=== PATIENT | female | born 1995 | race Caucasian/White ===

== ENCOUNTER 2017-04-21 07:30 | Inpatient (IN) | payer SELFPAY ==
[2017-04-21 01:57] VITALS: BMI 31.4
[2017-04-21] MEDS: Lactated Ringers 1,000 ML 50 ML IV ×3 (07:40→12:56)
[2017-04-21 07:59] LABS: Hemoglobin 12.8 g/dl (12.0-15.0); Mean Corp Hgb Conc 33.7 g/gl (32-36); Mean Corpuscular Hgb 31.7 pg (27.0-32.0); Mean Corpuscular Volume 94.1 fL (81-99); Mean Platelet Vol. 9.9 fl (6.2-12.0); Platelet Count 246 K/mm3 (150-450); RBC Distribution Width CV 12.5 % (11.6-14.6); RBC Distribution Width SD 42.9 fl (35.1-43.9); Red Blood Count 4.04 M/mm3 (4.2-5.4); White Blood Count 14.6 K/mm3 (4.4-11.0)
[2017-04-21 08:00] LABS: Scan Indicated on CBC? Y/N NO
--- NOTE | 2017-04-21 08:57 | PCM.PN.BLA ---
Progress Note LABOR PROGRESS NOTE Contractions are more intense. She is inquiring about an epidural. The nitrous oxide is not helping. AVSS GEN - NAD FHR 130, moderate variability, no accelerations, + variable deceleration TOCO 3/10 min SVE deferred A/P: 21yo G1 @ 38 4/7wga in latent labor, Cat II FHR -FHR overall reassuring, previously Cat I with accelerations also present and variables shallow -Epidural per patient request -Repeat vaginal exam after epidural placed
[2017-04-21] MEDS: Amnioinfusion- 0.9% NS 1,000 ML IV.SOLN. 300 ML INTRA-UTER (12:42)
--- NOTE | 2017-04-21 12:46 | PCM.PN.BLA ---
Progress Note LABOR PROGRESS NOTE Comfortable with epidural. No complaints. AVSS GEN - NAD, AAO x 3 FHR 145, minimal variability, + variable decelerations, + accelerations with scalp stimulation TOCO 3/10 min SVE FD/0 station, cephalic A/P: 21yo G1 @ 38 4/7wga in labor, Cat II FHR -IUPC placed and amnioinfusion started for suspected cord compression -Will monitor strip for 10-15 minutes, if no improvement of variability with repositioning, will proceed with pushing -Overall reassuring maternal and status
[2017-04-21] MEDS: Oxytocin 30 units/NS 500 ml 30 UNITS/500 ML IV.SOLN 334 UNITS IV (14:05)
--- NOTE | 2017-04-21 14:26 | PCM.OB.VAG ---
(1) (spontaneous vaginal delivery) Status: Acute (2) 38 weeks gestation of Status: Acute Vaginal Delivery Maternal Presentation: - - Latent labor Amniotic Membrane Rupture Type: Spontaneous Rupture of Membrane time: 04/21/17 1005h Amniotic Fluid Description: Clear, - - Terminal meconium Final MARGIE: 05/08/17 Final MARGIE Source: US <20 weeks Gestational age: 37 Weeks and 4 Days Date of Procedure: 04/21/17 Pre-Operative Diagnosis: 38 4/7wga, labor Post-Operative Diagnosis: 38 4/7wga, labor Surgery/ Procedure Performed: Spontaneous Vaginal Delivery Anesthesiologist: Vinny Calixto Type of Anesthesia: Epidural Description of Procedure: Patient was FD/+3 station on my arrival and pushing to +4 with Cat II FHR with accelerations, moderate variability and variable decelerations. She pushed to deliver head in HENRIQUE. Nuchal cord was reduced x 1. The infant shoulders and body delivered with ease to reveal a vigorous male . The was placed on the maternal abdomen and further attended by nursery personnel. The cord was doubly clamped and cut. Cord gas specimen were obtained. The placenta delivered spontaneously and appeared intact on inspection. A small vaginal laceration was repaired with 3-0 Vicryl Rapide for hemostasis with hemostasis attained. The fundus was firm at the umbilicus. Presentation: Vertex, HENRIQUE Placental Delivery Description: Spontaneous Placenta Disposition: [facility] Cord Vessel Description: 3 Vessels Nuchal Cord Compression: Without compression Cord Gases drawn per routine: ABG, VBG Cord Entanglement: Around neck x 1, loose Drain: Russ to straight drain Estimated Blood Loss: 200 Infant A gender: Male (1 minute): 8 (5 minute): 9 Episiotomy Description: None Laceration: Midline, Vaginal Extension/lac Medications given after delivery: IV Pitocin Complications: None
[2017-04-21] MEDS: Oxytocin 30 units/NS 500 ml 30 UNITS/500 ML IV.SOLN 167 UNITS IV (14:35)
--- NOTE | 2017-04-21 17:11 | DCINST_ITS ---
Discharge Diet: No Restrictions Discharge Activity: Return to Normal Activity, May Shower, May Take a Tub Bath May resume sexual activity in: 6 weeks Lifting Restrictions: 10-20 lb Call your doctor if you observe: Fever of 101 or Higher, Inability to urinate, Inability to have a bowel movement, Using more than one pad per hour, Shortness of breath, Chest pain, Calf discomfort, Uncontrolled pain Additional Instructions: If you experience any of the following, contact your healthcare provider. * Bleeding that soaks a pad every hour for 2 hours * Fever 100.4 or higher * Unrelieved incision or abdominal pain * Swelling, redness, discharge or bleeding from your incision or episiotomy site * Your incision begins to separate * Problems urinating (including inability to urinate or burning while urinating) . * Visual changes * Severe headache * Flu-like symptoms * Pain or redness in one of both of your breasts * Pain, warmth, tenderness or swelling in your legs, especially the calf area * Frequent nausea and vomiting * Symptoms of depression or anxiety If you experience any of the following, call 911 or go to the nearest Emergency Room. * Chest pain * Problems breathing * Seizure activity * Partial or complete paralysis of a body part, slurred speech, weakness or drooping of the face, or a sudden inability to walk or hold your balance Allergies/Adverse Reactions: Allergies No Known Allergies Allergy (Verified 04/21/17 01:58) Medications to take at Discharge Docusate Sodium [Colace] 100 mg PO BID PRN PRN #60 cap 04/21/17 Ibuprofen 600 mg PO TID #30 tab 04/21/17 Prenatabs FA 1 tab PO DAILY 04/21/17 The following prescriptions were given: Docusate Sodium [Colace] 100 mg PO BID PRN PRN #60 cap PRN Reason: Constipation Ibuprofen 600 mg PO TID #30 tab Orders to be completed after discharge: Electric breast pump Location: None Selected Please Follow Up With: Priscila Michel MD When: 6 weeks Primary Care Physician: Care Physician,No Primary [Primary Care Provider] -
[2017-04-21 19:40] VITALS: BP 125/74; PULSE 64; RESP 18; TEMP 36.4
[2017-04-21] MEDS: Ibuprofen 600 MG Tablet PO (21:34)
[2017-04-21 23:46] VITALS: BP 106/76; PULSE 76; RESP 16; TEMP 36.6
[2017-04-22 04:00] VITALS: BP 100/58; PULSE 74; RESP 16; TEMP 36.7; O2SAT 97
[2017-04-22] MEDS: Ibuprofen 600 MG Tablet PO ×3 (06:08→22:52)
[2017-04-22 08:00] VITALS: BP 110/58; PULSE 74; RESP 16; TEMP 36.6
[2017-04-22] MEDS: Senna/Docusate Sodium 1 Tablet PO (08:58)
[2017-04-22] MEDS: Acetaminophen 500 MG Tablet 1000 MG PO (11:24)
--- NOTE | 2017-04-22 13:14 | PCM.PN.OB ---
Patient Problems: Active and Suspected Problems (spontaneous vaginal delivery) (Acute) 38 weeks gestation of (Acute) Subjective: Relates she is sore, but out of bed. Lochia is scant. No complaints. Infant is latching and nursing well with cluster feeding overnight. Objective: AVSS - Physical Exam General: Alert, Oriented x3, Cooperative, No apparent distress HEENT: Atraumatic, Normocephalic Lungs: Normal air movement Cardiovascular: Regular rate, Regular Rhythm, Normal S1, Normal S2 Abdomen: Soft, Non Tender, Non-Distended, - - Fundus firm and nontender at 1 FW below umbilicus Extremities: No edema, No Calf Tenderness Neurological: Neuro grossly intact Psych/Mental Status: Normal Affect, Appropriate, Alert and oriented to time, place, person, mood and affect Vital Signs Temp Pulse Resp BP Pulse Ox 97.9 F 74 16 110/58 L 97 04/22/17 08:00 04/22/17 08:00 04/22/17 08:00 04/22/17 08:00 04/22/17 04:00 Oxygen Delivery Method Room Air Weight: 78.018 kg Body Mass Index (BMI) 31.4 Intake and Output for Last 24 Hours 04/20/17 04/21/17 04/22/17 23:59 23:59 23:59 Intake Total 2130 / 2130 Output Total 5300 / 5300 Balance -3170 / -3170 Assessment/Plan Active and Suspected Problems (spontaneous vaginal delivery) (Acute) 38 weeks gestation of (Acute) 21yo PPD#1 s/p doing well. -Rh positive, Rubella immune - -Routine care
[2017-04-22 14:30] VITALS: BP 116/74; PULSE 82; RESP 16; TEMP 36.9; O2SAT 95
[2017-04-22 22:00] VITALS: BP 120/77; PULSE 87; RESP 17; TEMP 36.6
[2017-04-23 02:00] VITALS: BP 111/64; PULSE 73; RESP 15
[2017-04-23 08:00] VITALS: BP 118/69; PULSE 72; RESP 18; TEMP 36.8
--- NOTE | 2017-04-23 08:21 | PCM.PN.OB ---
Patient Problems: Active and Suspected Problems (spontaneous vaginal delivery) (Acute) 38 weeks gestation of (Acute) Subjective: No issues overnight. Infant is nursing well every 1.5-3 hours. Denies heavy lochia. She relates she is tired. Objective: AVSS - Physical Exam General: Alert, Oriented x3, Cooperative, - - tearful HEENT: Atraumatic, Normocephalic Lungs: Normal air movement Cardiovascular: Regular rate, Regular Rhythm, Normal S1, Normal S2 Abdomen: Soft, Non Tender, Non-Distended, - - Fundus firm and nontender, umbilicus at 1 FW below umbilicus Extremities: No edema, No Calf Tenderness Neurological: Neuro grossly intact Psych/Mental Status: Normal Affect, Appropriate, Alert and oriented to time, place, person, mood and affect Vital Signs Temp Pulse Resp BP Pulse Ox 97.9 F 73 15 111/64 95 04/22/17 22:00 04/23/17 02:00 04/23/17 02:00 04/23/17 02:00 04/22/17 14:30 Oxygen Delivery Method Room Air Weight: 78.018 kg Body Mass Index (BMI) 31.4 Intake and Output for Last 24 Hours 04/21/17 04/22/17 04/23/17 23:59 23:59 23:59 Intake Total 2130 / 2130 Output Total 5300 / 5300 Balance -3170 / -3170 Assessment/Plan Active and Suspected Problems (spontaneous vaginal delivery) (Acute) 38 weeks gestation of (Acute) 21yo PPD#2 s/p doing well. -Rh positive, Rubella immune - -Routine care -Support offered, Ofelia mother will assist maternal and infant care on discharge -Infant has phototherapy, will d/c patient to hotel if not discharged
[2017-04-23] MEDS: Ibuprofen 600 MG Tablet PO ×2 (08:24→14:58)
--- NOTE | 2017-04-23 15:21 | OB.TRI.NOTE ---
History of Present Illness Reason For Visit: Document entered in error History of Present Illness: Document entered in error Home Medications Medication Instructions Recorded Docusate Sodium [Colace] 100 mg PO BID PRN PRN #60 cap 04/21/17 Ibuprofen 600 mg PO TID #30 tab 04/21/17 Prenatabs FA 1 tab PO DAILY 04/21/17 Allergies No Known Allergies Allergy (Verified 04/21/17 01:58) Physical Exam Vitals: Vital Signs Temp Pulse Resp BP Pulse Ox 98.2 F 72 18 118/69 95 04/23/17 08:00 04/23/17 08:00 04/23/17 08:00 04/23/17 08:00 04/22/17 14:30
[2017-04-23 16:00] VITALS: BP 130/72; PULSE 79; RESP 18; TEMP 36.8
[2017-04-23 18:00] VITALS: BP 113/67; PULSE 88; RESP 18; TEMP 36.7
== END 2017-04-23 18:00 | disposition home or self-care (01) | DRG 775 ==
LOC: WPOUT 07:35 → WP 07:35
PROVIDERS: Obstetrics & Gynecology; Admitting Provider Obstetrics & Gynecology; Visit Provider Obstetrics & Gynecology
DX: O76 Abnormality in fetal heart rate and rhythm complicating labor and delivery (principal); O42.02 Full-term premature rupture of membranes, onset of labor within 24 hours of rupture; Z37.0 Single live birth; Z3A.38 38 weeks gestation of pregnancy; O69.81X0 Labor and delivery complicated by cord around neck, without compression, not applicable or unspecified; O77.0 Labor and delivery complicated by meconium in amniotic fluid; Z87.891 Personal history of nicotine dependence; O70.0 First degree perineal laceration during delivery
CPT/HCPCS: 59025; 59050; 85027; 86850; 86900; 99218; J7030; J7120; G0378

== ENCOUNTER → 2018-03-05 16:21 | Outpatient (CLI) | payer OTHER, SELFPAY ==
--- OUTSIDE RECORDS SUMMARY | 2018-04-30 16:11 | XMS RPT_ITS ---
:1995 Author Organization [facility] Care Team Providers Name Role Phone Priscila Michel Attending Unavailable Flowers-Joaquin, Summer Admitting Unavailable Flowers-Joaquin, Summer Attending Unavailable Primay Care Physicia, No Primary Care Unavailable Primay Care Physicia, No Primary Care Unavailable Flowers-Joaquin, Summer Admitting Unavailable Flowers-Joaquin, Summer Attending Unavailable Flowers-Joaquin, Summer Attending Unavailable Primay Care Physicia, No Primary Care Unavailable PROBLEMS PROBLEMS DATE TYPE CONDITION / CODE ATTENDING STATUS SOURCE 03/08/2018 Unknown R30.0 - Dysuria / Anand Active [place] R30.0(ICD-10) [facility] Repository 03/08/2018 Unknown R39.15 - Urgency of Anand Active [place] urination / [facility] R39.15(ICD-10) Hospital Repository 04/26/2017 Unknown O80 - Encounter for Anand Active [place] full-term [facility] uncomplicated Hospital delivery / Repository O80(ICD-10) PROCEDURES PROCEDURES No Procedure Records FoundRESULTS RESULTS Observed: 03/05/2018 Status: F Source: [place] CULTURE, URINE 1:30 PM [facility] Urine Culture ORGANISM 1: Mixed Gram Pos AND Gram Neg Org [place] Count 1000-10,000 MIX CULTURE Mixed contaminants. Submit a new specimen if indicated. Performed By: #### M100.0650 #### [facility] [place], [address] DISCHARGE INSTRUCTION Observed: 04/21/2017 Status: F Source: [place] 5:11 PM [facility] [place] [facility] Medical Records Department [address] [place] [address] Instructions for Home/Discharge Instructions 04/21/17 1709 MR#: [id number] Acct: [id number] Name: EMILI RIOS Rep #: [id number] : 1995 21 From: Priscila Nuñez MD PCP: Care Physician, No Primary Status: ADM IN Discharge Diet: No Restrictions Discharge Activity: Return to Normal Activity, May Shower, May Take a Tub Bath May resume sexual activity in: 6 weeks Lifting Restrictions: 10-20 lb Call your doctor if you observe: Fever of 101 or Higher, Inability to urinate, Inability to have a bowel movement, Using more than one pad per hour, Shortness of breath, Chest pain, Calf discomfort, Uncontrolled pain Additional Instructions: If you experience any of the following, contact your healthcare provider. * Bleeding that soaks a pad every hour for 2 hours * Fever 100.4 or higher * Unrelieved incision or abdominal pain * Swelling, redness, discharge or bleeding from your incision or episiotomy site * Your incision begins to separate * Problems urinating (including inability to urinate or burning while urinating). * Visual changes * Severe headache * Flu-like symptoms * Pain or redness in one of both of your breasts * Pain, warmth, tenderness or swelling in your legs, especially the calf area * Frequent nausea and vomiting * Symptoms of depression or anxiety If you experience any of the following, call 911 or go to the nearest Emergency Room. * Chest pain * Problems breathing * Seizure activity * Partial or complete paralysis of a body part, slurred speech, weakness or drooping of the face, or a sudden inability to walk or hold your balance Allergies/Adverse Reactions: Allergies No Known Allergies Allergy (Verified 04/21/17 01:58) Medications to take at Discharge Docusate Sodium [Colace] 100 mg PO BID PRN PRN #60 cap 04/21/17 Ibuprofen 600 mg PO TID #30 tab 04/21/17 Prenatabs FA 1 tab PO DAILY 04/21/17 The following prescriptions were given: Docusate Sodium [Colace] 100 mg PO BID PRN PRN #60 cap PRN Reason: Constipation Ibuprofen 600 mg PO TID #30 tab Orders to be completed after discharge: Electric breast pump Location: None Selected Please Follow Up With: Priscila Michel MD When: 6 weeks Primary Care Physician: Care Physician,No Primary [Primary Care Provider] - 04/21/17 1711 <Electronically signed by Priscila Michel MD> Date Priscila Michel MD CC: No Primary Care Physician OPERATIVE REPORT Observed: 04/21/2017 Status: F Source: [place] 2:31 PM [facility] [place] [facility] Medical Records Department [address] [place] [address] Operative Report 04/21/17 1426 MR#: [id number] Acct: [id number] Name: EMILI RIOS Rep #: [id number] : 1995 21 From: Priscila Nuñez MD PCP: [place] Physician, No Primary Status: ADM IN Y [facility] (spontaneous vaginal delivery) Status: Acute (2) 38 weeks gestation of Status: Acute Vaginal Delivery Maternal Presentation: - - Latent labor Amniotic Membrane Rupture Type: Spontaneous Rupture of Membrane time: 04/21/17 1005h Amniotic Fluid Description: Clear, - - Terminal meconium Final MARGIE: 05/08/17 Final MARGIE Source: US <20 weeks Gestational age: 37 Weeks and 4 Days Date of Procedure: 04/21/17 Pre-Operative Diagnosis: 38 4/7wga, labor Post-Operative Diagnosis: 38 4/7wga, labor Surgery/ Procedure Performed: Spontaneous Vaginal Delivery Anesthesiologist: Vinny Calixto Type of Anesthesia: Epidural Description of Procedure: Patient was FD/+3 station on my arrival and pushing to +4 with Cat II FHR with accelerations, moderate variability and variable decelerations. She pushed to deliver head in HENRIQUE. Nuchal cord was reduced x 1. The shoulders and body delivered with ease to reveal a vigorous male . The was placed on the maternal abdomen and further attended by nursery personnel. The cord was doubly clamped and cut. Cord gas specimen were obtained. The placenta delivered spontaneously and appeared intact on inspection. A small vaginal laceration was repaired with 3-0 Vicryl Rapide for hemostasis with hemostasis attained. The fundus was firm at the umbilicus. Presentation: Vertex, HENRIQUE Placental Delivery Description: Spontaneous Placenta Disposition: [facility] Cord Vessel Description: 3 Vessels Nuchal Cord Compression: Without compression Cord Gases drawn per routine: ABG, VBG Cord Entanglement: Around neck x 1, loose Drain: Russ to straight drain Estimated Blood Loss: 200 Infant A gender: Male (1 minute): 8 (5 minute): 9 Episiotomy Description: None Laceration: Midline, Vaginal Extension/lac Medications given after delivery: IV Pitocin Complications: None 04/21/17 1431 <Electronically signed by Priscila Michel MD> Date Priscila Michel MD CC: No Primary Care Physician; Priscila Michel MD Signed CBC-COMPLETE BLOOD CNT Collected: 04/21/2017 Status: F Source: [place] NO DIFF 7:40 AM [facility] [place] [facility] TYPE CODE TESTS RESULT OUT OF RANGE REFERENCE UNITS LAB L100.1000 4.4-11.0 K/mm3 High WBC 14.6 LAB L100.1200 4.2-5.4 M/mm3 Low RBC 4.04 LAB L100.1300 12.0-15.0 g/dl Normal HGB 12.8 LAB L100.1400 37-47 % Normal HCT 38.0 LAB L100.1500 81-99 fL Normal MCV 94.1 LAB L100.1600 27.0-32.0 pg Normal MCH 31.7 LAB L100.1700 32-36 g/gl Normal MCHC 33.7 LAB L100.1810 11.6-14.6 % Normal RDW CV 12.5 LAB L100.1820 35.1-43.9 fl Normal RDW SD 42.9 LAB L100.1900 150-450 K/mm3 Normal PLT 246 LAB L100.2000 6.2-12.0 fl Normal MPV 9.9 Performed By: #### L100.0500 #### [facility] [address] [place], [address] TYPE AND SCREEN Collected: 04/21/2017 Status: F Source: ARACELI 7:40 AM [facility] Order Comment: Reason for Type AND Screen/Red Cells: ROUTINE TYPE CODE TESTS RESULT OUT OF RANGE REFERENCE UNITS LAB B10.0800 A Normal BLOOD TYPE GEL POSITIVE LAB B100.4000 Normal Antibody NEGATIVE Screen Performed By: #### B101.7450 #### [facility] [address] [place], [address] GROUP B STREP DNA Collected: 04/03/2017 Status: F Source: ARACELI BY PCR 10:00 AM [facility] [place] [facility] Order Comment: Source: Vaginal-Rectal TYPE CODE TESTS RESULT OUT OF RANGE REFERENCE UNITS LAB L8200.0100 Negative Normal GBS TEST Negative RESULT Performed By: #### L8200.0000 #### [facility] [address] [place], [address] Observed: 04/03/2017 Status: F Source: ARACELI CULTURE, GROUP B 12:00 AM [facility] [place] [facility] AHMET Culture Group B Beta Streptococcus is not isolated. Performed By: #### M100.1800 #### [facility] [address] [place], [address] ALLERGIES ALLERGIES DATE TYPE / CODE NAME / CODE REACTION SEVERITY SOURCE 04/21/2017 Drug No Known Unknown [facility] Allergy/4160 Allergies/F00 Hospital 23995(SNOMED [id number](RXNOR Repository CT) M) ENCOUNTERS ENCOUNTERS ADMIT/DISCHARGE ACCOUNT ADMITTING ENCOUNTER LOCATION SOURCE NUMBER CLASS 03/05/2018 [id number] Ambulatory [facility] [address] [facility] ing:LABSPEC Repository 05/01/2017 [id number] Anand, Ambulatory [place] [address] [facility] ing:WP Repository 04/21/2017/ [id number] Anand, Inpatient Araceli [place] 8 6 Summer [facility] ing:WPRoom: Repository [id number]: 1 04/03/2017 [id number] Ambulatory Arac[place] Arac[place] [address] [facility] ing:LABSPEC Repository PAYERS PAYERS ENCOUNTER GUARANTOR PAYER SUBSCRIBER SOURCE 03/05/2018 EMILI SIERRA51 Primary KENNEDY Christina TR Insurance:MEDICAL HERSHBERGERDOB: [address] [id number] [address]Ceb: Number: Repository [id number] (HP) Date:[id number] [address] [place] [id number]: 03/05/2018 Secondary NOT GIVENUNK Araceli Insurance:SELF PAY [facility] Number: Effective Repository Date:2018-03-05 05/01/2017 Emili Sierra51 Primary NOT GIVENUNK [facility] [address] Insurance:SELF PAY [address] [address]Yus: Number: Effective Repository Date:2017-04-10 (HP) 04/21/2017 EMILI SIERRA51 Primary [facility] EMILI RIOSB: Araceli TR PACKAGE [facility] [id number], Number: [facility] [address]Pmm: [id number] Repository Date:2017-04-21 (HP) 04/21/2017 Secondary NOT GIVENUNK Araceli Insurance:SELF PAY [facility] Number: Effective Repository Date:2017-04-21 04/03/2017 Emili Sierra51 Primary [facility] [facility] [facility] Insurance:MEDICAL HERSHBERGERDOB: [address] [id number] [address]Eai: . Number: Repository () [id number] Date:[id number] [address] [place] [id number]: 04/03/2017 Secondary NOT GIVENUNK Araceli Insurance:SELF PAY [facility] Number: Effective Repository Date:2017-04-03
== END ==
PROVIDERS: Visit Provider Obstetrics & Gynecology
DX: R30.0 Dysuria (principal); R39.15 Urgency of urination
CPT/HCPCS: 87086; 87088

== ENCOUNTER → 2018-12-09 15:43 | Outpatient (CLI) | payer SELFPAY ==
[2018-12-09 18:41] LABS: Chlamydia Trachomatis by PCR Negative (Negative); Neisserai gonorrhoeae by PCR Negative (Negative); Probe Check PASS; Sample Adequacy Control PASS; Specimen Processing Control PASS
[2018-12-15 12:15] LABS: HPV Reflexed? NOT INDICATED
== END ==
PROVIDERS: Referring Provider Obstetrics & Gynecology; Visit Provider Obstetrics & Gynecology
DX: Z11.3 Encounter for screening for infections with a predominantly sexual mode of transmission (principal); Z12.4 Encounter for screening for malignant neoplasm of cervix
CPT/HCPCS: 87491; 87591; 87624; 88175; G0145

== ENCOUNTER → 2019-01-07 10:05 | Outpatient (CLI) | payer SELFPAY ==
[2019-01-07 11:08] LABS: Absolute Lymphocyte Count 1.92 X10^3/uL (0.83-4.51); Absolute Neutrophil Count 6.5 X10^3/uL (2.0-7.7); Basophil# 0.02 X10^3/uL; Basophil% 0.2 % (0-1); Eosinophil# 0.04 X10^3/uL; Eosinophils% 0.4 % (0-5); Hematocrit 38.9 % (37-47); Hemoglobin 13.1 g/dL (12.0-15.0); Lymphocyte # 1.92 X10^3/ul (4.0); Lymphocyte % 21.3 % (19-41); Mean Corp Hgb Conc 33.7 g/dL (32-36); Mean Corpuscular Hgb 30.3 pg (27.0-32.0); Mean Platelet Vol. 9.8 fl (6.2-12.0); Monocyte# 0.42 X10^3/uL; Monocyte% 4.7 % (0-10); NRBC Flagged by Analyzer 0 % (0-5); Neutrophil % 72.2 % (47-70); Platelet Count 293 K/mm3 (150-450); RBC Distribution Width CV 11.9 % (11.6-14.6); RBC Distribution Width SD 38.8 fl (35.1-43.9); Red Blood Count 4.32 M/mm3 (4.2-5.4)
[2019-01-07 12:08] LABS: Color, Urine Straw (Yellow); Glucose, Dipstick Normal (Normal); Ketone-Dipstick Negative (Negative); Leukocyte Esterase-Dipstick Negative /ul (Negative); Nitrite-Dipstick Negative (Negative); Occult Blood-Urine Negative /ul (Negative); Protein-Dipstick Negative (Negative); Specific Gravity, Urine 1.005 (1.002-1.030); Urine Bilirubin Dipstick Negative (Negative); Urine Clarity Sl. Cloudy (Clear); Urine Urobilinogen Normal (Normal)
[2019-01-07 13:04] LABS: HIV - WCH Non-Reactive (Nonreactive); Hepatitis B Surface Antigen Non-Reactive (Nonreactive); Hepatitis C Antibody Non-Reactive (Nonreactive); Rubella IgG 43.8 IU/mL
[2019-01-07 13:25] LABS: Amphetamine Urine VISTA NEGATIVE (<1000 ng/mL); Barbiturate Urine VISTA NEGATIVE (< 200 ng/mL); Benzodiazepine Urine VISTA NEGATIVE (< 200 ng/mL); Cocaine Urine VISTA NEGATIVE (< 300 ng/mL); Ecstacy Urine VISTA NEGATIVE (< 500 ng/mL); Methadone Urine VISTA NEGATIVE (< 300 ng/mL); PCP Urine VISTA NEGATIVE (< 25 ng/mL); THC Urine VISTA NEGATIVE (< 50 ng/mL); Thyroid Stim Hormone (TSH) 1.56 uIU/mL (0.358-3.74); Vista UDS pH Range 6
[2019-01-14 01:54] LABS: Prenatal RPR NONREACTIVE (NONREACTIVE)
== END ==
PROVIDERS: Visit Provider Obstetrics & Gynecology
DX: Z34.81 Encounter for supervision of other normal pregnancy, first trimester (principal)
CPT/HCPCS: 36415; 80307; 81002; 82728; 82950; 84443; 85025; 85027; 86703; 86762; 86803; 87340

== ENCOUNTER → 2019-02-08 16:17 | Outpatient (CLI) | payer SELFPAY | PROVIDERS: Visit Provider Obstetrics & Gynecology | DX: O23.40 Unspecified infection of urinary tract in pregnancy, unspecified trimester (principal); Z3A.00 Weeks of gestation of pregnancy not specified | CPT/HCPCS: 87086; 87088 ==

== ENCOUNTER → 2019-05-03 15:19 | Outpatient (CLI) | payer SELFPAY ==
[2019-05-03 16:02] LABS: Hematocrit 36.2 % (37-47); Hemoglobin 12.1 g/dL (12.0-15.0); Mean Corp Hgb Conc 33.4 g/dL (32-36); Mean Corpuscular Hgb 31.3 pg (27.0-32.0); Mean Corpuscular Volume 93.8 fL (81-99); Mean Platelet Vol. 9.5 fl (6.2-12.0); Platelet Count 264 K/mm3 (150-450); RBC Distribution Width CV 12.3 % (11.6-14.6); Red Blood Count 3.86 M/mm3 (4.2-5.4)
[2019-05-03 16:27] LABS: Glucose Challenge Gest 1H 50g 89 mg/dL (70-140)
[2019-05-03 16:43] LABS: Vitamin D,25 Hydroxy 35.6 ng/mL (29.95-100.01)
== END ==
LOC: WOBLAB 15:20
PROVIDERS: Visit Provider Obstetrics & Gynecology
DX: Z34.83 Encounter for supervision of other normal pregnancy, third trimester (principal)
CPT/HCPCS: 36415; 82306; 82950; 85027

== ENCOUNTER → 2019-07-05 | Outpatient (CLI) | payer SELFPAY | END | disposition home or self-care (01) | LOC: LABSPEC 16:06 | PROVIDERS: Referring Provider Obstetrics & Gynecology; Visit Provider Obstetrics & Gynecology | DX: Z36.85 Encounter for antenatal screening for Streptococcus B (principal) | CPT/HCPCS: 87077; 87081; 87186 ==

== ENCOUNTER 2019-07-17 18:01 | Inpatient (IN) | payer SELFPAY ==
[2019-07-17] VITALS (47 sets, daily range): BP systolic 83–172; BP diastolic 56–120; PULSE 58–182; TEMP 36.1–36.3; O2SAT 81–100; BMI 30.1
[2019-07-17] MEDS: Lactated Ringers 1,000 ML 50 ML IV (18:35)
[2019-07-17] MEDS: Lactated Ringers 500 ML 999 ML IV (18:40)
[2019-07-17 18:53] LABS: Absolute Lymphocyte Count 2.56 X10^3/uL (0.83-4.51); Absolute Neutrophil Count 10.9 X10^3/uL (2.0-7.7); Basophil# 0.04 X10^3/uL; Basophil% 0.3 % (0-1); Eosinophil# 0.07 X10^3/uL; Eosinophils% 0.5 % (0-5); Hematocrit 37.1 % (37-47); Hemoglobin 12.4 g/dL (12.0-15.0); Lymphocyte # 2.56 X10^3/ul (4.0); Lymphocyte % 17.5 % (19-41); Mean Corp Hgb Conc 33.4 g/dL (32-36); Mean Corpuscular Hgb 31.2 pg (27.0-32.0); Mean Corpuscular Volume 93.2 fL (81-99); Mean Platelet Vol. 9.8 fl (6.2-12.0); Monocyte# 0.91 X10^3/uL; Monocyte% 6.2 % (0-10); NRBC Flagged by Analyzer 0 % (0-5); Neutrophil # 10.91 X10^3/uL (2.7-7.7); Neutrophil % 74.7 % (47-70); Platelet Count 276 K/mm3 (150-450); RBC Distribution Width CV 12.3 % (11.6-14.6); RBC Distribution Width SD 42.1 fl (35.1-43.9); Red Blood Count 3.98 M/mm3 (4.2-5.4); White Blood Count 14.6 K/mm3 (4.4-11.0)
[2019-07-17] MEDS: fentaNYL-bupivacaine (epidural) 100 ML BAG EPIDURAL (21:30)
[2019-07-17] MEDS: Oxytocin 30 units/NS 500 ml 30 UNITS/500 ML IV.SOLN 334 UNITS IV (21:57)
--- NOTE | 2019-07-17 22:08 | HP.PCM_ITS ---
History and Physical Date of Admission: 07/17/19 [facility] [place] ANTEPARTUM RECORD - HISTORY AND PHYSICAL (07/17/2019) Name: GABRIEL CAIOLuis Miguel Mukherjee OB Physician: LUIS History of This : Renita is a 23-year-old 2 para 1 who pre sents to labor and delivery in active labor. care has been uneventful. [place]'s Physician: RECORDS ANALYSIS MANAGER in [place] ...................................................................... : 1995 Age: 23 Address: [address] [place] [address] Phone: (h) [phone] ([phone] Insurance Carrier: Emergency Contact: RAFAELAArden RIOS [phone] ...................................................................... Final MARGIE: 07/25/19 By Ultrasound: 11 weeks 4 days PARITY: (G-Total Pregnancies P-Fullterm,Premature,Induced AB,Spont AB, Ectopics, Multiple,Living) MARGIE CONFIRMATION: By LMP: 10/18/18 Initial Exam: 07/25/19 By First Ultrasound Exam: 07/26/19 Final MARGIE: 07/25/19 OB PROBLEM LIST: 2 uncles w dev disability and cousin w autism. EPDS score 10. Declines AFP and CF. ?UTI - Macrobid at 16w gbs pos ALLERGIES: No Known Allergies MEDICATIONS: Hair,Skin and Nails tablet 1 PO QD Macrobid 100 mg capsule 1 tab PO bid x 7 days [place] 3-6-9 1,200 mg capsule Three po once daily 28 mg iron-800 mcg tablet One pill by mouth once a day Supplement (s) [No Strength] Alfredo Immune boost 3 to 5 daily vitamin B complex capsule 1 PO QD Vitamin D3 5,000 unit tablet One pill by mouth once a day 3,000 iu SOCIAL HISTORY: Smoking - Never Alcohol Use - drinks occasionally not while Diet - moderate, balanced diet, caffeine < 2 drinks per day and Water intake tries for 4 quarts daily. Lifestyle - moderate stress lifestyle and Exercise - minimal and LIkes to bike and do yoga. Enc to walk 20 min daily. Employer - works from home [employer] Job Description - Illicit Drug Use - denies use of street drugs Sexual Activity - Residence - lives with Place of - [place], [place] Hours Worked - 8-16 hours week but varies Spouse-Sig Other Name - Rafaela Rios Spouse-Sig Other Occupation - Construction Spouse-Sig Other Phone No - [phone] Children Name(s) - Trey(18) PRIOR DELIVERY HISTORY DEL DATE GEST LAB WT LB WT OZ TYPE ANES LABOR TX 16 Apr 23 38 12 6 14 Vag Epidural No ANTEPARTUM FLOW CHART VISIT GE RTC FU F F IN U U DATE WK MD WKS HT PN HR M SS BP ED WT IN GL D EF ST __ ____ ___ __ __ ___ __ __ __ ___ __ __ __ ___ __ 07 Jul SHM 1 + + 124/86 o 168 31 Jun SHM 1 35 + + 124/82 0 168 - - 1+ 25 -4 Jun CH 2 + 112/82 0 159 tr - May SHM 4 31 V + + 114/72 0 158 - - 14 May SHM 2 29 V + + 106/74 0 156 tr - May 03 SHM 2 28 + + 116/78 0 156 - - 06 Apr 30 CH 3 25 + + 116/72 0 151 - - 04 Mar 25 SHM 4 20 + + 120/64 0 143 tr - Feb 19 SHM 4 + 0 124/54 0 138 - - 04 Jan 14 SHM + 100/62 0 135 - - ANTEPARTUM NOTE(S): Jul 12 2019: none Jul 05 2019: GBS today, LARC completed and declined Jun 16 2019: see note Jun 02 2020: May 20 2020: going to [place], ACOG records provided May 03 2020: see note Apr 11 2019: feeling well. Glucola given. Mar 09 2019: comp u/s today Feb 08 2019: see prog note Jan 07 2019: feeling well. Lab draw for NOB today. COMPREHENSIVE ANTEPARTUM NOTE(S): Jul 17 2019: Call Msg from 4:[address] Lionel Nuñez. Caio calling @ 38 wks 6 days stating she thinks her water broke and color is a avelar greenish color. Also thinks she lost her mucous plug which was bloody. Ctx's apprx 30 sec q 10 min for the past hour or so. Has felt FM. Sent in for evaluation of questionnable fluid. Msg to Dr Douglass. Jul 12 2019: H taken to OB. tkg Jul 05 2019: Cervix midposition, moderate. Discussed Vitamin K indications - r/b oral vs. IM vitamin K reviewed. Pt understands PO not FDA approved in [place], slightly higher potential risk for hemorrhagic disease of compared to IM, however, low risk overall approx 0-1/100,000 vs. 0-0.5/100,000. Will need to f/u with Peds for dosing. Jun 16 2019: Caio is here for a PNV. She is doing good. Good FM. No edema. Does report some lower pelvic pain that sometimes makes it hard for her to walk. Jun 16 2019: (m,m*) Routine PNV. Reports +FM. FHR 138. Feeling well with no concerns. GBS collection reviewed for next visit and SVE if wanting. Discussed only three providers in the office currently and call rotation. To return in 2 weeks with M for routine PNV. - Jun 02 2019: Caio is here for a PNV. She is doing good and did not express any concerns. She has decided to not get Tdap or the Influenza vaccine. Good FM. No edema. Urine - -. May 20 2019: VTE precautions for traveling reviewed. PTL, ROM, FM precautions. Repeat long dip today neg. May 03 2019: Caio Austin is here for a appt. She is feeling well with no edema. Does report some lower back pain. She goes to the chiropractor and does stretches to alleviate it. Suggested a belly band. Urine - -. Baby boy is moving good. May 03 2019: Discussed PPBC. Considering MICHELLE TIAN. Apr 11 2019: (m,m*) Reports +FM. FHR 143. Is feeling well. Wants to have repeat US done at next visit with labs. Reviewed Kombucha and making sure product is pasteurized with no alcohol content for safety purposes. States she didn't know midwives were in the office. Educated on CNM with OB collaboration. Will return in 3 weeks for US, labs and routine PNV with [facility], but does want to meet KW at least once as well to be familiar with all providers. Has no other questions or concerns at this time. - Mar 09 2019: Caio is here for visit. She is doing well except has noticed some tingling to nipples bilaterally. Advised this is probably WNL with advancing . No redness reported. Advised occ leaking happens in third trimester and this is WNL. Discussed Influenza and Tdap vaccines. She will consider. LMT Mar 09 2019: Anatomy scan today, MALE. ANTERIOR placenta. b/l renal pyelectasis - discussed significance as soft marker, increased risk for aneuploidy, increased risk for UTI. No other evidence of obstruction. Plan repeat US at 28-32wga. Feb 08 2019: Caio is here today for her visit with NOB. Patient states that she has been doing well but does have some concerns regarding pain/burning during and after IC recently. Patient states that she and use lubrication and that has not changed the only changes she notes is her soap he uses to wash. She states that she doesn't have any other urin joseifna sx at this time. Patient had long dip done in office leuk-large, nitrite, urobilinogen-neg, protein-neg, pH-5, blood-small, sp gravity-1020, ketones- small, bilirubin and glucose-neg. Will plan to send for U/a C. jlb Feb 08 2019: Caio Maravilla is here for NOB nurse visit w MARGIE July 25, 2019 planning a vag del w epidural at [facility], using a RECORDS ANALYSIS MANAGER in [place] for post disch ped care and to breastfeed. 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 The was planned and welcome. They have a 22 month old son, Trey. Renita has NKA to drugs, food, latex or the environment. She is a lifetime non smoker, denies street drug use, uses alcohol occ but not in pg. Her diet is well balanced w minimal caffeine and usually 4 liters of water daily. Water is her favorite drink. She is active at home w her family, likes to do yoga or bike. Enc walking 20 min day or doing yoga in inclement weather. Genetics S creening form completed noting two uncles with developmental disabilities and a cousin w autism. She declines AFP and CF testing. They are self pay. She is set up with the medical self pay program already. Warning signs in pg reviewed along w otc meds ok to take, lifting restriction of 25#, wearing her seatbelt low on her abdomen, the importance of protein in her diet and reaching the office after hours w understanding voiced. She has a copy of What to Expect. Given FoodSafety.gov paper. Given ACOG paper on Flu Shots in . Advised to ask Trey's RECORDS ANALYSIS MANAGER about the flu shot for him. Office Class suggested as she had some major issues w first baby w over pumping and fussy, crabby baby who ended up on goats milk and had eczema. Renita has had chickenpox and is aware of litter box issues. Labs and US were done at her prev appt. EPDS score today 10. Enc to call w any concerns. Visit lasted about 50 min. [facility] Dec 09 2018: Caio is here today for missed menses appointment. Patient is a . Positive upt in office today. Patient states that lmp is 10/18/2018 making her 7-8 wks with Margie of 07/2019. Patient states that she has had no bleeding or spotting since lmp but that she has been nauseated and having breast tenderness. Patient states that she feels that nausea is tolerable at this time but will try vitamin B6 with Unisom and if not improving or if worsens she will plan to call the office for script. Patient states that she has a h/o normal pap's with most recent pap not done in this office. Patient is due for pap and cultures today. Educational materials provided and reviewed with patient. nohemi Dec 09 2018: Continues yoga, walking and bicycling. No sodium chlorite operator complaints. shm REVIEW OF SYSTEMS: GENERAL - Denies fever, or chills SKIN - Denies rash, new skin lesions, or change in moles EYES - Denies blurred vision, or change in visual acuity EARS - Denies ear pain, or difficulty hearing NOSE - Denies nasal congestion, discharge, or bleeding MOUTH - Denies sore throat, or difficulty swallowing NECK - Denies pain or swelling RESPIRATORY - Denies shortness of breath, cough, wheezing CARDIOVASCULAR - Denies palpitations, chest pain, orthopnea, PND, peripheral edema, syncope or claudication GASTROINTESTINAL - Denies nausea, vomiting, diarrhea, constipation, Denies abdominal pain, melena and or bright red blood GENITOURINARY - Denies dysuria, frequency of urination, urgency, or hesitancy MUSCULOSKELETAL - Denies joint or muscle pain, or back pain NEUROLOGICAL - Denies localized numbness, weakness, or tingling PSYCHIATRIC - Denies depression, anxiety, substance abuse or suicide attempts ENDOCRINE - Denies heat or cold intolerance, weight loss or gain, increasing thirst HEMATO-IMMUNOLOGIC - Denies easy bruising, bleeding, oral ulcerations or recurrent infections GENETICS SCREENING: Age 35+ years: No Thalassemia: No Neural Tube Defect: No Down Syndrome: No OZZIE-SACHS: No Sickle Cell Disease: No Hemophilia: No Musc. Dystrophy: No Cystic Fibrosis: No-declines screening Matthew Chorea: No Mental Retardation: Yes Fragile X: No Other genetic: No Other defects: No SABs/still births: No Drugs since LMP: Yes Comments: 2 uncles w dev disabilies and cousin w autism. INFECTION HISTORY: High risk AIDS: No High risk Hepatitis: No Exposed to TB: No Exposed to Herpes: No Rash/viral illness since LMP: No History of STD: No MENSTRUAL HISTORY: *Menses Amount/Duration: 3-4 daysMenses Regularity: RegularFrequency: monthlyMenarche (Age Onset): 11* PAST SUMMARY: PARITY: 1. Total Pregnancies............ 2 2. Full Term Pregnancies........ 1 3. Premature.................... 0 4. Abortions - Induced.......... 0 5. Abortions - Spontaneous...... 0 6. Ectopics..................... 0 7. Multiple Births.............. 0 8. Living Children.............. 1 PAST #1: Date of :.................. 04/21/17 Gestation Weeks:................ 38 Length of labor(hours):......... 12 Sex:............................ M Weight-lbs:............... 6 Weight-oz:................ 14 Type of Delivery:............... Vag Type of Anesthesia:............. Epidural Place of Delivery:.............. [facility] Treatment of Labor?:.... No Comment: NO PHYSICAL EXAMINATION General Appearence: 23 yo female in no acute distress Vital Signs: AF, VSS Heart: RRR without rubs or gallops Lungs: CTA x 2 Breasts: deferred Abdomen: gravid Pelvis: Cervix: 6 cm / 95% effaced/grossly ruptured with meconium stained fluid Presentation: cephalic Station: 0 Fetus: Size: AGA Movement: present Heart: present Labs for : CAIO RIOS since 10/28/2018 ORDER DATEIN DESCRIPTION VALUE UNITS RANGE A+ COMMENT CULTURE, GROUP B STREPTOCOCCUS 07/05/19 NOTE Original Ordering Provider: Priscila Michel AHMET Culture ORGANISM 1: Streptococcus agalactiae (B) Amount Growth Growth Streptococcus agalactiae (B): REACTION Clindamycin $$ >=1 R Inducable Clindamycin Resistan NEG Linezolid $$$$ <=2 S Vancomycin $ 1 S Reference Range: S= Susceptible, I= Intermediate, R= Resistant MICS are expressed in micrograms per mL (NF) indicates non-formulary drug at [facility]. Approval by Infectious Disease Specialist required before non-formulary drugs may be ordered and/or dispensed. Testing performed on [employer] instrument Reviewed by PRISCILA Reviewed by PRISCILA Faith,25 HYDROXY 05/03/19 NOTE Original Ordering Provider: Summer Flowers-Joaquin VITAMIN D 25-OH 35.6 ng/mL 29.95-100.01 Vitamin D 25(OH) Status Range Deficiency <20 ng/mL (50nmol/L) Insufficiency 20 - 30 ng/mL (50 - 75 nmol/L) Sufficiency 30 - 100 ng/mL (75 - 250 nmol/L) Toxicity >100 ng/mL (>250 nmol/L) Reviewed by PRISCILA GLUCOSE CHALLENGE GEST 1H 50G 05/03/19 NOTE Original Ordering Provider: Priscila Michel GLU GEST 50G 1H 89 mg/dL 70-140 Reviewed by [facility] CBC-COMPLETE BLOOD CNT NO DIFF 05/03/19 NOTE Original Ordering Provider: Priscila Michel WBC 13.0 K/mm3 4.4-11.0 H RBC 3.86 M/mm3 4.2-5.4 L HGB 12.1 g/dL 12.0-15.0 HCT 36.2 % 37-47 L MCV 93.8 fL 81-99 MCH 31.3 pg 27.0-32.0 MCHC 33.4 g/dL 32-36 RDW CV 12.3 % 11.6-14.6 RDW SD 42.0 fl 35.1-43.9 PLT 264 K/mm3 150-450 MPV 9.5 fl 6.2-12.0 Reviewed by PRISCILA CULTURE, URINE 02/08/19 NOTE Original Ordering Provider: Priscila Michel Urine Culture Below infection level. ORGANISM 1: Mixed Gram Positive Organisms [place]ody Count 1000-10,000 MIX CULTURE Mixed contaminants. Submit a new specimen if indicated. Reviewed by [facility] CBC-COMPLETE BLOOD CNT NO DIFF 01/07/19 NOTE Original Ordering Provider: Priscila Michel WBC 7.1 K/mm3 4.4-11.0 RBC 3.69 M/mm3 4.2-5.4 L HGB 11.7 g/dL 12.0-15.0 L HCT 34.8 % 37-47 L MCV 94.3 fL 81-99 MCH 31.7 pg 27.0-32.0 MCHC 33.6 g/dL 32-36 RDW CV 12.7 % 11.6-14.6 RDW SD 43.8 fl 35.1-43.9 PLT 156 K/mm3 150-450 MPV 10.4 fl 6.2-12.0 Reviewed by PRISCILA RPR 01/07/19 NOTE Original Ordering Provider: Priscila Michel RPR NONREACTIVE NONREACTIVE Reviewed by KEVIN THYROID STIM HORMONE (TSH) 01/07/19 NOTE Original Ordering Provider: Priscila Michel TSH 1.56 uIU/mL 0.358-3.74 Reviewed by PRISCILA URINE DRUG SCREEN (VISTA) 01/07/19 NOTE Original Ordering Provider: Priscila Michel TO BE CONFIRMED CONFIRMATORY TESTING FOR ALL POSITIVE URINE DRUG SCREEN RESULTS WILL ONLY BE SENT OUT UPON PHYSICIAN ORDER. VISTA Urine Drug Screen methods provide only preliminary analytical test results. A more specific alternate chemical method must be used in order to obtain a confirmed analytical result. Gas chromatography/mass spectrometery (GC/MS) is the preferred confirmatory method. Clinical consideration and professional judgement should be applied to any drug of abuse test result, particularly when preliminary positive results are used. URINE TCA TESTING MUST BE ORDERED SEPARATELY. USE TEST MNEMONIC: [facility] VISTA UDS PH 6 AMPHETAMINES NEGATIVE <1000 ng/mL BARBITIURATES NEGATIVE < 200 ng/mL BENZODIAZIPINE NEGATIVE < 200 ng/mL COCAINE NEGATIVE < 300 ng/mL ECSTACY NEGATIVE < 500 ng/mL METHADONE NEGATIVE < 300 ng/mL OPIATES NEGATIVE < 300 ng/mL PCP NEGATIVE < 25 ng/mL THC NEGATIVE < 50 ng/mL Reviewed by PRISCILA Reviewed by PRISCILA T AND S-NO CHARGE W/PNP 01/07/19 Reason for Type AND Screen/Red Cells: Surgery? N [facility]~[address] [place], [address]~ BLOOD TYPE GEL A POSITIVE N AB SCREEN GEL NEGATIVE N Reviewed by PRISCILA HEPATITIS C ANTIBODY 01/07/19 NOTE Original Ordering Provider: Priscila Michel HEPATITIS C AB Non-Reactive Nonreactive Non Reactive: < 0.8 Equivocal: >/= 0.8 to < 1.0 Reactive: >/= 1.0 The CDC recommends that a reactive/equivocal HCV antibody result be followed up by the HCV Nucleic Acid Amplification test (002271) HEPATITIS B SURFACE ANTIGEN 01/07/19 NOTE Original Ordering Provider: Priscila Michel HEPB SURFACE AG Non-Reactive Nonreactive w Reviewed by PRISCILA HIV - [facility] 01/07/19 NOTE Original Ordering Provider: Priscila Michel HIV - [facility] Non-Reactive Nonreactive Reviewed by PRISCILA RUBELLA IGG 01/07/19 NOTE Original Ordering Provider: Priscila Michel RUBELLA IGG 43.8 IU/mL Antibody results Interpretation of Immune Status < 5 IU/ml Presumed Non-immune 5 - < 10 IU/ml Equivocal > or = 10 IU/ml Presumed Immune Reviewed by PRISCILA URINALYSIS, ROUTINE (DIPSTICK) 01/07/19 NOTE Original Ordering Provider: Priscila Michel COLOR Straw Yellow CLARITY Sl. Cloudy Clear GLUCOSE, UR Normal mg/dl Normal BILIRUBIN URINE Negative mg/dL Negative KETONE UR Negative mg/dl Negative SP.GR. DIPSTX 1.005 1.002-1.030 PH UR 7.0 5.0 - 8.0 PROT DIPSTX Negative mg/dl Negative UROBILI Normal mg/dl Normal NITRITE UR Negative Negative OCCULT BLOOD-UR Negative /ul Negative LEUK ESTERASE Negative /ul Negative Reviewed by PRISCILA CBC W/DIFF, AUTOMATED 01/07/19 NOTE Original Ordering Provider: Priscila Michel WBC 9.0 K/mm3 4.4-11.0 RBC 4.32 M/mm3 4.2-5.4 HGB 13.1 g/dL 12.0-15.0 HCT 38.9 % 37-47 MCV 90.0 fL 81-99 MCH 30.3 pg 27.0-32.0 MCHC 33.7 g/dL 32-36 RDW CV 11.9 % 11.6-14.6 RDW SD 38.8 fl 35.1-43.9 PLT 293 K/mm3 150-450 MPV 9.8 fl 6.2-12.0 NEUT% 72.2 % 47-70 H LY% 21.3 % 19-41 MONO% 4.7 % 0-10 EO% 0.4 % 0-5 BASO% 0.2 % 0-1 IM GRAN % 1.200 % 0.0-0.9 H IG% - Immature Granulocytes (promyelocytes, myelocytes and metamyelocytes) > 1% indicates that a LEFT SHIFT is Present. ABSOLUTE NEUT 6.5 X10 3/uL 2.0-7.7 ABSOLUTE LYMPH 1.92 X10 3/uL 0.83-4.51 NRBC, FLAGGED 0 % 0-5 Reviewed by PRISCILA PAP I-G W/RFX HRHPV-APTIMA 12/09/18 NOTE Original Ordering Provider: Priscila Michel DIAGN . NEGATIVE FOR INTRAEPITHELIAL LESION OR MALIGNANCY. THIS SPECIMEN WAS RESCREENED PART OF OUR INTELLIGENCE APPLICATIONS PROGRAM. ADEQ . Satisfactory for evaluation. Endocervical and/or squamous metaplastic cells (endocervical component) are present. PERFORM . Connie Higgins, Nuclear Weapons Custodian QC REV . Beatrice Pastor, Supervisory Nuclear Weapons Custodian (ASCP) TEST METHOD . This liquid based ThinPrep(R) pap test was screened with the use of an image guided system. COMM . . PAPSMR . The Pap smear is a screening test designed to aid in the detection of premalignant and malignant conditions of the uterine cervix. It is not a diagnostic procedure and should not be used as the sole means of detecting cervical cancer. Both false-positive and false-negative reports do occur. HPV RFLX . The HPV DNA reflex criteria were not met with this specimen result therefore, no HPV testing was performed. Performed at: [address] [id number] Piping Manager: Omaira Heaton MD, Phone: [phone] Reviewed by PRISCILA CT/ESTHER [facility] BY PCR 12/09/18 NOTE Original Ordering Provider: Priscila Michel [facility] PCR Negative Negative NG BY PCR Negative Negative Reviewed by PRISCILA Impression /Plan: 38+ week intrauterine in active labor. Preparations in progress for delivery.
--- NOTE | 2019-07-17 22:11 | PCM.OPRPT ---
Vaginal Delivery Maternal Presentation: Active Labor Amniotic Membrane Rupture Type: Spontaneous at home Amniotic Fluid Description: Moderate meconium Final MARGIE: 07/25/19 Final MARGIE Source: US <20 weeks Gestational age: 38 Weeks and 6 Days doctor who attended delivery (if requested by OB): Ani Abarca - Moderate MSF Date of Procedure: 07/17/19 Pre-Operative Diagnosis: IUP Post-Operative Diagnosis: IUP Surgery/ Procedure Performed: Spontaneous Vaginal Delivery Type of Anesthesia: Epidural Description of Procedure: Spontaneous vaginal delivery of a viable male infant with Apgars of 8/9, from an occiput anterior presentation with moderate meconium stained fluid and meconium stained placental membranes. Cord around the neck x3 tight and under the arm. No episiotomy or lacerations. Sponges okay. Delivery physician: Tanner Douglass MD. Presentation: Vertex Placental Delivery Description: Spontaneous Placenta Disposition: [facility] Cord Vessel Description: 3 Vessels Cord Entanglement: - - Around neck x3 tight and under the left arm and around the body Estimated Blood Loss: 250 cc A gender: Male (1 minute): 8 (5 minute): 9 Episiotomy Description: None Laceration: None Medications given after delivery: IV Pitocin Complications: None
--- NOTE | 2019-07-17 22:15 | DCINST_ITS ---
<Tanner Douglass - Last Filed: 07/17/19 22:15> Discharge Diet: No Restrictions Discharge Activity: May Shower, May Take a Tub Bath May resume sexual activity in: 4-6 weeks Additional Activity Instructions:: Nothing in the vagina for 4-6 weeks. You may return to work/school in 6 weeks. Call your doctor if you observe: Inability to urinate, Inability to have a bowel movement, Using more than one pad per hour Additional Instructions: If you experience any of the following, contact your healthcare provider. * Bleeding that soaks a pad every hour for 2 hours * Fever 100.4 or higher * Unrelieved incision or abdominal pain * Swelling, redness, discharge or bleeding from your incision or episiotomy site * Your incision begins to separate * Problems urinating (including inability to urinate or burning while urinating). * Visual changes * Severe headache * Flu-like symptoms * Pain or redness in one of both of your breasts * Pain, warmth, tenderness or swelling in your legs, especially the calf area * Frequent nausea and vomiting * Symptoms of depression or anxiety If you experience any of the following, call 911 or go to the nearest Emergency Room. * Chest pain * Problems breathing * Seizure activity * Partial or complete paralysis of a body part, slurred speech, weakness or drooping of the face, or a sudden inability to walk or hold your balance Allergies/Adverse Reactions: Allergies No Known Allergies Allergy (Verified 07/17/19 18:32) Medications to take at Discharge Prenatabs FA 1 tab PO DAILY 04/21/17 Calcium 07/17/19 Catano-3 07/17/19 Probiotic 07/17/19 Vitamin D3 07/17/19 Please Follow Up With: Priscila Michel MD - [phone] When: Call to make an appointment with your doctor in 2 and 6 weeks. Primary Care Physician: Care Physician,No Primary [Primary Care Provider] - Test Results: Test results from this visit will be discussed in further detail at your follow- up appointment, if applicable. <Ingrid Stearns - Last Filed: 07/19/19 06:57> Additional Instructions: If you experience any of the following, contact your healthcare provider. * Bleeding that soaks a pad every hour for 2 hours * Fever 100.4 or higher * Unrelieved incision or abdominal pain * Swelling, redness, discharge or bleeding from your incision or episiotomy site * Your incision begins to separate * Problems urinating (including inability to urinate or burning while urinating). * Visual changes * Severe headache * Flu-like symptoms * Pain or redness in one of both of your breasts * Pain, warmth, tenderness or swelling in your legs, especially the calf area * Frequent nausea and vomiting * Symptoms of depression or anxiety If you experience any of the following, call 911 or go to the nearest Emergency Room. * Chest pain * Problems breathing * Seizure activity * Partial or complete paralysis of a body part, slurred speech, weakness or drooping of the face, or a sudden inability to walk or hold your balance Test Results: Test results from this visit will be discussed in further detail at your follow- up appointment, if applicable.
[2019-07-18 00:04] VITALS: BP 126/64; PULSE 75
[2019-07-18] MEDS: 0.9% Saline Lock 10 ML Syringe IV (00:30)
[2019-07-18 04:34] VITALS: BP 109/58; PULSE 85; RESP 14; TEMP 36.9
[2019-07-18 09:10] VITALS: BP 105/65; PULSE 81; RESP 18; TEMP 37.3; O2SAT 96
[2019-07-18] MEDS: Ibuprofen 600 MG Tablet PO ×2 (09:45→16:40)
--- NOTE | 2019-07-18 11:44 | PCM.PN.OB ---
Subjective: Patient without complaints. Breast-feeding going well. Mother is group B strep positive and baby had penicillin on board only about 2 hours at the time of delivery so baby needs to stay for 1 more day. - Physical Exam Vitals/I&O's: Vital Signs Temp Pulse Resp BP Pulse Ox 99.1 F 81 18 105/65 96 07/18/19 09:10 07/18/19 09:10 07/18/19 09:10 07/18/19 09:10 07/18/19 09:10 Oxygen Delivery Method Room Air Weight: 170 lb 3.15 oz Body Mass Index (BMI) 30.1 Intake and Output for Last 24 Hours 07/16/19 07/17/19 07/18/19 23:59 23:59 23:59 Intake Total 1004.50 / 1004.50 333 / 333 Output Total 1600 / 1600 Balance 1004.50 / 1004.50 -1267 / -1267 Laboratory Results 07/17/19 18:35: WBC 14.6 H, RBC 3.98 L, Hgb 12.4, Hct 37.1, MCV 93.2, MCH 31.2, MCHC 33.4, RDW Std Deviation 42.1, RDW Coeff of Trav 12.3, Plt Count 276, MPV 9.8, Immature Gran % (Auto) 0.800, Neut % (Auto) 74.7 H, Lymph % (Auto) 17.5 L, [place] % (Auto) 6.2, Eos % (Auto) 0.5, Baso % (Auto) 0.3, Absolute Neuts (auto) 10.9 H, Absolute Lymphs (auto) 2.56, Nucleated RBC % 0 07/17/19 18:35: Blood Type A POSITIVE, Antibody Screen NEGATIVE Current Medications Acetaminophen (Tylenol) 1,000 mg PO Q8H PRN PRN PRN Reason: Pain Score 1-3/10 Bisacodyl (Dulcolax) 10 mg RECTAL UD PRN PRN Reason: If no BM Dibucaine (Dibucaine) 1 applic TOPICAL TID PRN PRN; Protocol PRN Reason: Discomfort Hydrocortisone (Hytone) 1 applic TOPICAL TID PRN PRN; Protocol PRN Reason: Discomfort Ibuprofen (Motrin) 600 mg PO Q6H PRN PRN PRN Reason: Pain Score 1-3/10 Last Admin: 04/13/20 09:45 Dose: 600 mg Documented by: Methylergonovine Maleate (Methergine) 0.2 mg IM X1 PRN PRN Reason: Excess bleeding/uterine atony Ondansetron HCl (Zofran) 4 mg IV Q4H PRN PRN PRN Reason: Nausea Oxycodone HCl (Oxyir) 5 - 10 mg PO Q4H PRN PRN PRN Reason: Pain Score 4-10/10 Senna/Docusate Sodium (Senokot-S, Tamela-Colace) 1 - 2 tablet PO DAILY PRN PRN PRN Reason: Constipation Simethicone (Mylicon) 80 mg PO PCHS PRN PRN Reason: Indigestion/Stomach pain Sodium Chloride () 5 - 15 ml IV UD PRN PRN Reason: SALINE FLUSH Last Admin: 07/18/19 00:30 Dose: 10 ml Documented by: Zolpidem Tartrate (Ambien (Generic)) 5 mg PO QHS PRN PRN PRN Reason: Insomnia Medical Necessity - Tobacco Use Smoking Status: Never smoker Assessment/Plan All Active Problems 38 weeks gestation of (Acute) (spontaneous vaginal delivery) (Acute) Doing well day #1 status post routine spontaneous vaginal delivery. Continuing present care.
[2019-07-18 13:15] VITALS: BP 111/60; PULSE 90; RESP 16; TEMP 37.8
[2019-07-18 16:43] VITALS: BP 118/76; PULSE 80; RESP 18; TEMP 37.1
[2019-07-18 19:37] VITALS: BP 119/68; PULSE 83; RESP 18; TEMP 36.7; O2SAT 95
[2019-07-18] MEDS: Acetaminophen 500 MG Tablet 1000 MG PO (19:44)
--- NOTE | 2019-07-19 01:45 | NURSING ---
Report given to Luciana LISA, taking over pt and infant care at this time.
[2019-07-19 02:05] VITALS: BP 110/59; PULSE 69; RESP 16; TEMP 36.5; O2SAT 96
[2019-07-19] MEDS: Ibuprofen 600 MG Tablet PO (02:10)
--- NOTE | 2019-07-19 07:11 | PCM.PN.OB ---
Subjective: Feeling well. Denies pain or heavy bleeding. States is going well and has no questions or concerns. Objective: VSS. Fundus u/2, firm, midline. Lochia rubra moderate - Physical Exam Vitals/I&O's: Vital Signs Temp Pulse Resp BP Pulse Ox 97.7 F L 69 16 110/59 L 96 07/19/19 02:05 07/19/19 02:05 07/19/19 02:05 07/19/19 02:05 07/19/19 02:05 Oxygen Delivery Method Room Air Weight: 77.2 kg Body Mass Index (BMI) 30.1 Intake and Output for Last 24 Hours 07/17/19 07/18/19 07/19/19 23:59 23:59 23:59 Intake Total 1004.50 / 1004.50 333 / 333 Output Total 1600 / 1600 Balance 1004.50 / 1004.50 -1267 / -1267 General: Alert, Oriented x3, Cooperative HEENT: Atraumatic, PERRLA, EOMI, Normocephalic Neck: Supple, No JVD, Negative Carotid Bruits Lungs: Clear to auscultation, Normal air movement Cardiovascular: Regular rate, No murmurs Abdomen: Bowel Sounds Present, Soft, Non Tender, Passing Flatus, Hypoactive Bowel Sounds Extremities: No edema, Capillary Refill Less than 3 Seconds Skin: No rashes, No breakdown Musculoskeletal: No Tenderness to Palpation of Joints or Extremities Neurological: Cranial nerves II-XII grossly intact Psych/Mental Status: Normal Affect, Appropriate Current Medications Acetaminophen (Tylenol) 1,000 mg PO Q8H PRN PRN PRN Reason: Pain Score 1-310 Last Admin: 07/18/19 19:44 Dose: 1,000 mg Documented by: Bisacodyl (Dulcolax) 10 mg RECTAL UD PRN PRN Reason: If no BM Dibucaine (Dibucaine) 1 applic TOPICAL TID PRN PRN; Protocol PRN Reason: Discomfort Hydrocortisone (Hytone) 1 applic TOPICAL TID PRN PRN; Protocol PRN Reason: Discomfort Ibuprofen (Motrin) 600 mg PO Q6H PRN PRN PRN Reason: Pain Score 1-3/10 Last Admin: 07/19/19 02:10 Dose: 600 mg Documented by: Methylergonovine Maleate (Methergine) 0.2 mg IM X1 PRN PRN Reason: Excess bleeding/uterine atony Ondansetron HCl (Zofran) 4 mg IV Q4H PRN PRN PRN Reason: Nausea Oxycodone HCl (Oxyir) 5 - 10 mg PO Q4H PRN PRN PRN Reason: Pain Score 4-10/10 Senna/Docusate Sodium (Senokot-S, Tamela-Colace) 1 - 2 tablet PO DAILY PRN PRN PRN Reason: Constipation Simethicone (Mylicon) 80 mg PO PCHS PRN PRN Reason: Indigestion/Stomach pain Sodium Chloride () 5 - 15 ml IV UD PRN PRN Reason: SALINE FLUSH Last Admin: 07/18/19 00:30 Dose: 10 ml Documented by: Zolpidem Tartrate (Ambien (Generic)) 5 mg PO QHS PRN PRN PRN Reason: Insomnia Medical Necessity - Tobacco Use Smoking Status: Never smoker Assessment/Plan All Active Problems 38 weeks gestation of (Acute) (spontaneous vaginal delivery) (Acute) A: status post vaginal delivery day #2 Normal involution, lochia and course well Dyad stable P: Educated on support through the hospital and OB office that is available Unsure of PP contraception plan, will discuss at 6wk appt To call for 2wk PP telehealth follow up and 6wk normal PP followup Okay to discharge today pending 's bilirubin level
[2019-07-19 08:00] VITALS: BP 126/76; PULSE 73; RESP 16; TEMP 36.8
[2019-08-12 18:32] VITALS: BP 144/83; PULSE 97
[2019-08-12 18:49] VITALS: BP 162/92; PULSE 100
== END 2019-07-19 09:45 | disposition home or self-care (01) | DRG 807 ==
LOC: WPOUT 18:05 → OBT 18:06 → WPOUT 18:17 → WP 18:17
PROVIDERS: Admitting Provider Obstetrics & Gynecology; Visit Provider Obstetrics & Gynecology
DX: O42.92 Full-term premature rupture of membranes, unspecified as to length of time between rupture and onset of labor (principal); Z37.0 Single live birth; O77.0 Labor and delivery complicated by meconium in amniotic fluid; O69.1XX0 Labor and delivery complicated by cord around neck, with compression, not applicable or unspecified; O69.89X0 Labor and delivery complicated by other cord complications, not applicable or unspecified; O99.824 Streptococcus B carrier state complicating childbirth; Z3A.38 38 weeks gestation of pregnancy
CPT/HCPCS: 59025; 59050; 85025; 86850; 86900; 86901; 99218; J7120; A4216; G0378

== ENCOUNTER → 2019-09-02 14:47 | Outpatient (CLI) | payer SELFPAY ==
[2019-07-17 18:31] VITALS: BMI 30.1
== END ==
PROVIDERS: Referring Provider Obstetrics & Gynecology; Visit Provider Obstetrics & Gynecology
DX: Z39.1 Encounter for care and examination of lactating mother (principal)
CPT/HCPCS: 96158